=== PATIENT | female | born 1990 | race Caucasian/White ===

== ENCOUNTER → 2018-12-27 10:40 | Outpatient (CLI) | payer OTHER, SELFPAY ==
--- NOTE | 2018-12-27 | DI.RAD.S_ITS ---
PROCEDURE: FL UPPER GI W AIR INDICATIONS: Unspecified abdominal pain COMPARISON: None. 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 No suspicious abdominal calcifications. Visualized solid organ contours appear normal. Bony structures appear unremarkable. Esophagus: Esophageal mucosa is normal on air-contrast views. On single-contrast views, there is normal esophageal peristalsis. No strictures, extrinsic mass effects, or diverticula. No hiatal hernia or elicited gastroesophageal reflux. There is normal transit of a calibrated barium tablet through the esophagus. Stomach: The stomach is normally distensible, with normal rugal fold thickness. No mucosal masses or ulcers. Pylorus and duodenal bulb appear normal in morphology. Duodenal folds are normal in thickness as well. IMPRESSION: 1. Normal esophageal motility. No esophageal stricture. No reflux. 2. No gastric ulcer. No hiatal hernia. 3. On clinical palpation there is a soft fullness at the site of concern in the midline upper abdomen. This may represent rectus diastases or ventral abdominal wall hernia. Targeted ultrasound with a Valsalva maneuver of the region may be helpful for further evaluation. CT of the abdomen and pelvis with contrast may also be helpful for screening if source of abdominal pain is not identified. Dictated by: Luis Alberto Humphries M.D. on 12/27/2018 at 13:28 Approved by: Luis Alberto Humprhies M.D. on 12/27/2018 at 13:33
== END ==
PROVIDERS: PCP Family Medicine; Visit Provider Family Medicine
DX: R10.9 Unspecified abdominal pain (principal)
CPT/HCPCS: 74247

== ENCOUNTER → 2019-01-18 06:38 | Outpatient (CLI) | payer OTHER, SELFPAY ==
--- NOTE | 2019-01-18 07:40 | DI.CT.S_ITS ---
PROCEDURE: CT ABDOMEN PELVIS W CON INDICATIONS: Unspecified abdominal pain TECHNIQUE: After the administration of oral and intravenous contrast, 5 mm thick sections acquired from the diaphragms to the symphysis. 5 mm thick coronal and sagittal reformats were performed. For radiation dose reduction, the following was used: automated exposure control, adjustment of mA and/or kV according to patient size. COMPARISON: Pelvic ultrasound 07/20/2017. FINDINGS: Image quality: Excellent. ABDOMEN: Lung bases: Lung bases are clear. Heart size is normal. Solid organs: Liver is normal in size and enhancement. Focal fatty infiltration at the falciform ligament. Gallbladder is nondistended. No calcified gallstones. Increased conspicuity of the gallbladder wall. Biliary system is non-dilated. Pancreas enhances normally. Pancreatic duct is not dilated. Spleen is normal in size and enhancement. Subcentimeter dense focus most likely represents a benign hemangioma. No adrenal nodules. Kidneys are normal in size and enhancement, without hydronephrosis. Left renal collecting system is prominent compared to the right. No hydroureter. Peritoneum and bowel: Stomach, small bowel, and colon loops are normal in caliber and wall thickness. The appendix is normal. No free fluid or air. Nodes and vessels: No retroperitoneal or mesenteric adenopathy. Aorta and inferior vena cava are normal in caliber. Miscellaneous: No ventral hernias. PELVIS: Genitourinary: Bladder is decompressed. The small right ovarian cyst measuring 1.5 cm and left measuring 1 cm. Uterus is retroverted and within normal limits in size. There is a hypointense region in the myometrium, (5/36). IUD is no longer present. No free fluid. Miscellaneous: No inguinal hernias or adenopathy. Bones: No suspicious bony lesions. No vertebral body compression fractures. IMPRESSION: 1. No inflammatory process identified to explain the patient's epigastric pain. 2. Small indeterminate area of hypodensity in the uterine myometrium. This could be seen in adenomyosis or an infectious process. Pelvic ultrasound or pelvic MRI could be performed for further evaluation. Dictated by: Luis Alberto Humphries M.D. on 01/18/2019 at 9:09 Approved by: Luis Alberto Humphries M.D. on 01/18/2019 at 9:20
== END ==
PROVIDERS: PCP Family Medicine; Visit Provider Family Medicine
DX: R10.13 Epigastric pain (principal)
CPT/HCPCS: 74177; Q9967

== ENCOUNTER 2019-03-11 07:52 | Day surgery (SDC) | payer OTHER, SELFPAY ==
[2019-03-07 08:36] VITALS: BMI 22.0
[2019-03-11] VITALS (9 sets, daily range): BP systolic 102–119; BP diastolic 68–77; PULSE 57–96; RESP 11–18; TEMP 36.1–37.3; O2SAT 98–100; BMI 20.5
--- NOTE | 2019-03-11 | PATH_ITS ---
[facility] Accession Number: [id number] . 01 Material submitted: . fallopian tube - BILATERAL FALLOPIAN TUBES . 02 Diagnosis: Bilateral Fallopian Tubes, Tubal Ligation: Complete cross-sections of segments of fallopian tube x2. V 03/14/201958 Local . 02 Electronically signed: . Mary Lenz MD, Pathologist NPI- [id number] . 01 Gross description: . Received in formalin, labeled bilateral fallopian tubes, are two fimbriated fallopian tubes (tube #1: length-4.8 cm, diameter-0.5 cm; tube #2: length-5.2 cm, diameter-0.4 cm) with cortez-purple smooth shiny serosa and cruz unremarkable lumens. Section code: (A1) fallopian tube #1, farm loan representative serial sections; (A2) fimbria #1, bivalved, entirely submitted; (A3) fallopian tube #2, farm loan representative serial sections; (A4) fimbria #2, bivalved, entirely submitted. ([id number]) /MRV 03/14/201958 Local . 02 Pathologist provided ICD-10: Z30.2 . 02 CPT . 900524 Performed at: 01 [facility] [address], [place], [place] [id number] MD Augusto Hayes MD Phone: [phone] Performed at: 02 [facility] [address] [place], [place] [id number] MD Cleopatra Byrd MD Phone: [phone]
[2019-03-11] MEDS: LACTATED RINGERS 1,000 ML 42 ML IV (10:54)
--- NOTE | 2019-03-11 11:01 | PM.PREOP ---
Pre-operative Note Interval Note History & Physical reviewed/Exam performed by Physician: Yes Changes to H&P: No
--- NOTE | 2019-03-11 11:36 | SUR.OPER ---
Lithotomy on padded OR bed, head on pillow, arms secured on padded arm boards at <90 degrees abduction. Legs secured in padded yellow fins stirrups.
[2019-03-11] MEDS: BUPIVACAINE 0.5% W/ EPI (PF) 30 ML VIAL INJ (11:43)
[2019-03-11] MEDS: fentaNYL 100 MCG/2 ML INJ IV (12:13)
[2019-03-11] MEDS: OXYCODONE/ACETAMINOPHEN 5/325 TABLET 1 TAB PO ×2 (12:21→12:57)
--- NOTE | 2019-03-11 12:43 | SUR.PHASEII ---
pt arrived to phase II via stretcher. Pt sitting up with eyes open and talking to RN. Drsg's on abdomen observed to be c/d/i. Pt denies any nausea at this time. Pt rating pain 5/10. This LN will medicate pt with another po pain medication. Bed in lowest position and call light given to pt.
--- NOTE | 2019-03-19 10:34 | PM.HP.1 ---
History of Present Illness History of Present Illness Date Patient Seen: 03/11/19 Time Patient Seen: 10:45 Chief complaint: [id number] Narrative: Patient is a 28-year-old 4 para 2 who desires permanent sterilization She is here for laparoscopic bilateral salpingectomy Patient History Medical History (Updated 03/07/19 @ 08:40 by Gin Moore RN) Ear infection (Acute) Sciatica (Acute) Surgical History (Updated 03/07/19 @ 08:40 by Gin Moore RN) No history of previous surgery (Acute) Family & Social History Social History: household members significant other Tobacco & Substance use: Smoking Status Former smoker Meds Home Medications and Allergies Home Medications Medication Instructions Recorded Confirmed Type No Known Home Medications 01/24/19 03/11/19 History Allergies Allergy/AdvReac Type Severity Reaction Status Date / Time cefaclor [From CECLOR] Allergy Intermediate Hives as a Verified 03/11/19 08:21 baby Exam Vital Signs (past 8 hours): Oxygen Delivery Method Room Air Narrative Exam Narrative: HEENT: No thyromegaly, no anterior cervical or supraclavicular lymphadenopathy. Lungs:Clear to auscultation bilaterally, no wheezes. Cardiovascular: Regular rate and rhythm, no murmurs, rubs, or gallops. Abdomen: No scars. No hepatosplenomegaly. No masses palpable. External genitalia: Normal Vagina: Normal Cervix: Normal Bimanual exam: 8 Week size uterus, retroverted Mobile. Rectal: No masses. Assessment & Plan Assessment & Plan narrative: Assessment: 28-year-old 4 para 2 desires permanent sterilization Plan: Laparoscopic bilateral salpingectomy The risks, benefits, and alternatives to the procedure were explained to the patient. The risks including bleeding, infection, injury to the bowel, bladder, or ureters. She understands these risks and agrees to proceed. A full par Q was held and consent form was signed.
--- NOTE | 2019-03-19 13:48 | PM.GYNOP.1 ---
Operative Date/Time/Diagnoses Date of procedure: 03/11/19 Time of procedure: 11:00 Pre-op diagnosis: Desires permanent sterilization Post-op diagnosis: same Procedure & Clinicians Procedure: Procedures Operation Date: 03/11/19 09:45 Actual Procedures Side Surgeon p Laparoscopic Salpingectomy Bilateral Kaci Pardo MD Indications: Desires permanent sterilization Surgeon: Kaci Pardo Anesthesia Type: General Operative Notes Findings: Eight week size retroflexed uterus. Normal tubes and ovaries. Normal liver and gallbladder. Normal appendix Closure Type: primary Specimen(s): left tube and right tube Estimated blood loss (mL): 5 Blood products transfused: none Procedure in detail: After informed consent was obtained, the patient was taken to the operating room where she was placed in the dorsal supine position. After adequate general endotracheal anesthesia was achieved, she was placed in the dorsal lithotomy position, and prepped and draped in the usual sterile fashion. A time-out was performed. A bivalve speculum was placed into the vagina and the anterior lip of the cervix grasped with a single-tooth tenaculum. The cervical os was sequentially dilated until the Zumi uterine manipulator could pass easily into the endometrial cavity. The single-tooth tenaculum was removed from the anterior lip of the cervix. The bivalve speculum was removed from the vagina. Attention was then turned to the abdomen where 6 cc of 0.5% Marcaine with epinephrine were injected in the umbilical fold. A 5 mm incision was made. The Veress needle was placed into the peritoneal cavity, and its placement confirmed by aspiration and drop test. The abdominal cavity was insufflated with 3.8 L of CO2. The Veress needle was removed, and a 5 mm trocar was placed without difficulty. Initial inspection of the pelvis and abdomen revealed the findings noted above. Two other incisions were made midway between the pubic symphysis and umbilicus, 4 cm lateral to the midline, after 6 cc of 0.5% Marcaine with epinephrine were injected. Two 5 mm trocars were placed under direct visualization. The right tube was grasped with an atraumatic grasper. Using the PlasmaKinetic was settings of 40 w, the mesosalpinx on the right side was cauterized and cut all the way down to the cornua of the uterus. The tube was amputated at the cornua. This was repeated on the patient's left tube. The tubes were removed through the lateral trocars. Hemostasis was achieved. The instruments were removed from the abdomen. The CO2 was allowed to escape. The incisions were repaired with 4 0 Biosyn in a subcuticular fashion. Steri-Strips, 2 x 2, and op site were placed. The Zumi uterine manipulator was removed from the uterus. Sponge, lap, and instrument counts were correct x2. The patient tolerated the procedure well, and was taken to PACU in stable condition. Complications: none Post-operative Condition: stable Disposition: PACU Plan for aftercare: Home after recovery
== END 2019-03-11 13:23 | disposition home or self-care (01) ==
PROVIDERS: PCP Family Medicine; Visit Provider Obstetrics & Gynecology
PROC: 0UT74ZZ Resection of Bilateral Fallopian Tubes, Percutaneous Endoscopic Approach (ICD-10-PCS; CPT 58661; principal; 2019-03-11 09:45)
DX: Z30.2 Encounter for sterilization (principal)
CPT/HCPCS: 58661; J1100; J1885; J2250; J2405; J2704; J3010

== ENCOUNTER 2022-04-15 07:38 | Emergency (ER) | payer OTHER, SELFPAY ==
[2022-04-15 08:05] VITALS: BP 131/73; PULSE 105; RESP 19; TEMP 37.4; O2SAT 98; BMI 23.7
--- NOTE | 2022-04-15 09:41 | ED.WOUNDLAC ---
HPI - Wound/Laceration General Chief Complaint: Wound/Laceration Stated Complaint: cut fingers with an exato knife sees inside Time Seen by Provider: 04/15/22 09:18 Source: patient Mode of arrival: Family Vehicle Limitations: no limitations History of Present Illness HPI narrative: This is a 31 year old female who is right-hand dominant with lacerations to her 3rd and 4th fingers on her left hand. Patient denies any medical issues. No daily medications. Patient thinks her tetanus was last updated 9 years ago. 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 She states the 1 smaller spots seem to be bleeding quite a bit. She noticed that the skin was gapping on the 3rd finger. She denies numbness or tingling. She is able to flex and extend her fingers here in the department. She denies any other injuries. Related Data Home Medications Medication Instructions Recorded Confirmed No Known Home Medications 01/24/19 03/11/19 Allergies Allergy/AdvReac Type Severity Reaction Status Date / Time cefaclor [From CECLOR] Allergy Intermediate Hives as a Verified 04/15/22 08:02 baby Review of Systems Review of Systems ROS Unobtainable: All systems reviewed & are unremarkable except as noted in HPI and below Patient History Medical History Ear infection Sciatica Surgical History No history of previous surgery S/P laparoscopic surgery Social History household members: significant other Smoking Status: Former smoker Smoking Status: Former smoker tobacco type: cigarettes alcohol intake frequency: 0-2 drinks per day Substance Use Type: marijuana Exam Narrative Exam Narrative: GENERAL: Alert and oriented x three, well-nourished female in mild distress. HEENT: Head normocephalic, atraumatic, EOMI, pupils reactive, face symmetric, moist mucous membranes NECK: Supple, full range of motion EXTREMITIES: Normal range of motion, no clubbing or edema. Neurovascularly intact. Patient has cap refill less than 2 seconds in all 5 fingers. Patient 1/2 cm laceration over the proximal metacarpophalangeal joint that has a brisk ooze, this easily stopped with direct pressure. Tendons appear intact. Patient has a 2.5 cm laceration over the lateral portion and volar side of her 3rd finger extending from just proximal of the distal interphalangeal joint and next to the middle interphalangeal joint. It is gapped there subcutaneous tissue exposure, I am unable to visualize any tendon involvement. Patient has full flexion, extension and 80 and adduction. NEUROLOGICAL: Cranial nerves II through XII grossly intact. Moving all extremities SKIN: Warm, dry, no petechiae, no rashes or lesions otherwise noted. Initial Vital Signs Initial Vital Signs: Vital Signs Temperature 99.4 F 04/15/22 08:05 Pulse Rate 105 H 04/15/22 08:05 Respiratory Rate 19 04/15/22 08:05 Blood Pressure 131/73 04/15/22 08:05 Pulse Oximetry 98 04/15/22 08:05 Oxygen Delivery Method 04/15/22 08:05 Procedures Laceration Repair Laceration 1: Site: hand (finger #4) Size (cm): 1.5 Description: linear Depth: simple, single layer and involves muscle layer Local Anesthetic: lidocaine 1% and with bicarb Amount of anesthesia used (mL): 1 Pre-repair: wound explored, irrigated extensively and deep structures intact Skin layer closed with: nylon Skin layer suture size: 4-0 Number of sutures: 3 Technique: simple, interrupted Laceration 2: Site: hand (finger #3) Side (If applicable): left Size (cm): 2.5 Description: linear Depth: simple, single layer Local Anesthetic: lidocaine 1% and with bicarb Amount of anesthesia used (mL): 2.5 Pre-repair: wound explored, irrigated extensively and deep structures intact Skin layer closed with: nylon Skin layer suture size: 4-0 Number of sutures: 7 Technique: simple, interrupted Course Orders Ordered: Discontinued Medications Diphtheria/Tetanus/Acell Pertussis (Tet,Diph,Pertuss(Acell),Vac/Pf 0.5 Ml Syringe) 0.5 ml IM .ONCE ONE Stop: 04/15/22 09:19 Last Admin: 04/15/22 10:19 Dose: 0.5 ml Documented By: NR Lidocaine HCl (Lidocaine 2% Inj Sdv 5ml) 5 ml INJ INTRA-OP ONE Stop: 04/15/22 09:19 Last Admin: 04/15/22 10:18 Dose: 5 ml Documented By: NR Vital Signs Vital signs: Vital Signs - 8 hr 04/15/22 08:05 Temperature 99.4 F Pulse Rate 105 H Respiratory Rate 19 Blood Pressure 131/73 Pulse Oximetry 98 Oxygen Delivery Method Room Air MDM - Wound/Laceration MDM Narrative Medical decision making narrative: This is a 31-year-old female with 2 lacerations to the dorsum of her left hand, patient is non dominant hand her tetanus was updated. Lacerations repaired. Patient appears to be neurovascularly intact she is good range of motion. She was splinted to prevent flexion of the joints so that she does not pull or break the sutures. We discussed return precautions. All questions answered. Discharge Plan Departure Patient Disposition: Home Clinical Impression: Laceration of finger Qualifiers: Encounter type: initial encounter Finger: ring finger Laceration of finger of left hand Qualifiers: Encounter type: initial encounter Finger: middle finger Instructions: DI for Laceration Repair Activity Restrictions/Additional Instructions: Follow-up in the next 7-10 days to have your sutures removed. You can call for an appointment follow up with urgent care, primary care return to emergency department. Use the splint to remind yourself not to flex your fingers to prevent your sutures from breaking. You can take this off to wash and clean the area. Wound Care: Keep wound(s) clean and dry. Wash daily with soap and water only, pat dry. Do not use over the counter products (alcohol or peroxide)on the wounds unless instructed by a physician. Can use triple antibiotic ointment over both areas. If wound condition worsens (increased/expanding redness, developing fluid blisters, or worsening pain), either contact your doctor for an urgent re-assessment , or return to the Emergency Department. Return to the Emergency Department for any new or worsening symptoms. Return if fever greater than 100.4 Fahrenheit, increased swelling, increasing pain or worsening symptoms such as increased discharge or spreading redness, new numbness, tingling or weakness, loss of sensation, or other new or concerning changes. Prescriptions: No Action No Known Home Medications Referrals: Triston Zhang MD [Primary Care Provider] - Stand Alone Forms: Patient Portal/API
[2022-04-15] MEDS: LIDOCAINE 2% INJ SDV 5ML 5 ML INJ (10:18)
[2022-04-15] MEDS: TET,DIPH,PERTUSS(ACELL),VAC/PF 0.5 ML SYRINGE IM (10:19)
[2022-04-15 10:32] VITALS: BP 120/73; PULSE 92; RESP 18; O2SAT 98
== END 2022-04-15 10:33 | disposition home or self-care (01) ==
PROVIDERS: Emergency Provider Emergency Medicine; PCP Family Medicine
DX: S61.213A Laceration without foreign body of left middle finger without damage to nail, initial encounter (principal); S61.215A Laceration without foreign body of left ring finger without damage to nail, initial encounter; W26.0XXA Contact with knife, initial encounter; Z23 Encounter for immunization
CPT/HCPCS: 12002; 29130; 90471; 99283; 90715

== ENCOUNTER → 2022-10-03 06:37 | Outpatient (CLI) | payer OTHER, MEDICAID, SELFPAY ==
--- NOTE | 2022-10-03 | DI.US.S_ITS ---
PROCEDURE: US ABDOMEN LIMITED INDICATIONS: LUMP SUPERIOR TO UMBILICUS TECHNIQUE: Real-time focused scanning was performed of the abdomen, with image documentation. COMPARISON: None. FINDINGS: Focused ultrasound examination of anterior abdominal wall superior to the umbilicus shows 8 millimeter anterior abdominal wall defect with ventral herniation sac containing fat only. Overall size of the herniation sac measures 3.7 x 1.6 x 4.1 cm in size. IMPRESSION: Fat containing supraumbilical ventral hernia as described above. Dictated by: Galindo Betts M.D. on 10/03/2022 at 9:53 Approved by: Galindo Betts M.D. on 10/03/2022 at 9:54
== END ==
PROVIDERS: PCP Family Medicine; Referring Provider Family Medicine; Visit Provider Family Medicine
DX: K43.9 Ventral hernia without obstruction or gangrene (principal); R22.2 Localized swelling, mass and lump, trunk; R10.13 Epigastric pain
CPT/HCPCS: 76705

== ENCOUNTER 2022-11-08 06:35 | Day surgery (SDC) | payer OTHER, MEDICAID, SELFPAY ==
[2022-10-25 08:40] VITALS: BMI 21.4
[2022-11-08 06:55] VITALS: BP 107/74; PULSE 70; RESP 16; TEMP 36.4; O2SAT 98; BMI 21.4
[2022-11-08] MEDS: SCOPOLAMINE 1 PATCH TOP (07:02)
[2022-11-08] MEDS: LACTATED RINGERS 1,000 ML 42 ML IV ×2 (07:02→08:27)
--- NOTE | 2022-11-08 07:46 | P.HP_ITS ---
History of Present Illness History of Present Illness Date Patient Seen: 11/08/22 Time Patient Seen: 07:46 Chief complaint: Hernia Repair Narrative: Deidre is here for her epigastric hernia repair with mesh. Please see the previous office note for details. No changes in her history since that time. [facility] Medical History (Updated 10/31/22 @ 16:10 by Delbert Rodriguez RN) Anxiety Ear infection Murmur Sciatica Surgical History (Updated 10/25/22 @ 08:44 by Gin Moore RN) H/O surgical removal of keloid S/P laparoscopic surgery (03/19/19) Family History Grandmother Ovarian cancer Throat cancer Thyroid cancer Social History marital status: unknown household members: children lives independently: Yes occupational status: employed Smoking Status: Former smoker alcohol intake: former Meds Home Medications and Allergies Home Medications Medication Instructions Recorded Confirmed Type buspirone 10 mg tablet 10 mg PO BID 10/24/22 11/08/22 History lamotrigine 25 mg tablet 25 mg PO DAILY 10/24/22 11/08/22 History quetiapine 100 mg tablet 100 mg PO DAILY 10/24/22 11/08/22 History Allergies Allergy/AdvReac Type Severity Reaction Status Date / Time cefaclor [From CECLOR] Allergy Intermediate Hives as a Verified 11/08/22 06:54 baby Exam Vital Signs (past 8 hours): - 11/08/22 06:55 Temperature 97.6 F Pulse Rate 70 Respiratory Rate 16 Blood Pressure 107/74 Pulse Oximetry 98 Oxygen Delivery Method Room Air Oxygen Delivery Method Room Air Narrative Exam Narrative: Supraumbilical epigastric hernia roughly 3 cm Assessment & Plan Assessment and plan (1) Epigastric hernia: Status: Acute Plan We reviewed the risks and benefits of epigastric hernia repair with mesh and she would like to proceed.
[2022-11-08] MEDS: CLINDAMYCIN 900 MG/50 ML PIGGYBACK 50 MG IV (07:55)
--- NOTE | 2022-11-08 08:22 | SUR.OPER ---
Supine on padded OR bed, head on pillow, arms secured on padded arm boards at <90 degrees abduction, legs uncrossed, safety belt at thigh, tape over blanket over lower legs.
[2022-11-08] MEDS: BUPIVACAINE 0.5% (PF) 30 ML, EPINEPHrine 0.15 MG INJ (08:28)
[2022-11-08 08:39] VITALS: BP 115/63; PULSE 109; RESP 14; TEMP 36.9; O2SAT 98
--- NOTE | 2022-11-08 08:43 | PM.OP.1 ---
Operative Date/Time/Diagnoses Date of procedure: 11/08/22 Time of procedure: 08:43 Pre-op diagnosis: Epigastric hernia Post-op diagnosis: same Procedure & Clinicians Procedure: Open epigastric hernia repair with mesh Same procedure as scheduled: Yes Surgeon: Nathaniel Lackey [facility] Worker: Ridge Goyal Operative Notes Procedure in detail: Preoperative antibiotic was administered. The patient was brought to the operating room, placed on the table in the supine position and general anesthesia was induced. The abdomen was prepped and draped in the usual fashion. A time-out was performed. A 5 cm transverse incision was made just superior to the umbilicus. The hernia appeared to contain some preperitoneal fat or potentially falciform ligament adipose tissue. There was no peritoneal sac. The hernia was freed and allowed to drop back into the preperitoneal space. The fascial defect was about 1.5 cm and oriented in a transverse direction. We injected some local into the fascia and the closed the defect transversely with 3 interrupted 0 Ethibond sutures. The subcutaneous adipose tissue was cleared off of the anterior sheath circumferentially about 2 cm in each direction. A piece of polypropylene mesh was trimmed to fit over the fascial closure and secured with Tisseel. The skin was closed with multiple interrupted 3-0 Vicryl dermal sutures followed by a running 4 Monocryl subcuticular closure. Steri-Strips were applied and an abdominal binder was applied. Ridge HERZOG provided assistance with exposure, retraction and closure of incisions. EBL: 10 mL Post-operative Condition: stable Disposition: PACU
[2022-11-08 08:44] VITALS: BP 108/59; PULSE 97; RESP 14; O2SAT 99
[2022-11-08 08:49] VITALS: BP 105/67; PULSE 100; RESP 16; O2SAT 99
[2022-11-08 08:54] VITALS: BP 101/57; PULSE 84; RESP 16; O2SAT 98
[2022-11-08 09:00] VITALS: BP 101/57; PULSE 84; RESP 16; O2SAT 99
[2022-11-08] MEDS: HYDROCODONE/ACET 5/325 TABLET 1 TAB PO (09:01)
== END 2022-11-08 09:23 | disposition home or self-care (01) ==
PROVIDERS: PCP Family Medicine; Referring Provider Surgery; Visit Provider Surgery
PROC: (CPT 49591; principal; 2022-11-08 07:45)
DX: K43.9 Ventral hernia without obstruction or gangrene (principal)
CPT/HCPCS: 49591; J0171; J1100; J1885; J2250; J2405; J2704; J3010; J3490

== ENCOUNTER → 2024-04-04 13:30 | Outpatient (CLI) | payer OTHER, SELFPAY ==
--- NOTE | 2024-04-04 13:32 | DI.CT.S_ITS ---
PROCEDURE: CT ABDOMEN PELVIS W CON INDICATIONS: recurrent ventral hernia, mesh complication TECHNIQUE: After the administration of intravenous contrast, axial sections acquired from the lung bases to the pubic symphysis. Coronal and sagittal reformats were performed. For radiation dose reduction, the following was used: automated exposure control, adjustment of mA and/or kV according to patient size. COMPARISON: [facility], CT, CT ABDOMEN PELVIS W CON, 01/18/2019, 7:41. FINDINGS: Image quality: Diagnostic. Lower Chest: No significant findings. ABDOMEN: Liver: No solid mass. Gallbladder: No radiopaque gallstones or wall thickening. Biliary ducts: No biliary dilation. Pancreas: No ductal dilation. Spleen: Size is within normal limits. Adrenal Glands: No adrenal nodules. Kidneys and Ureters: No hydronephrosis. No solid mass. No complex renal cystic lesion which requires follow up. Stomach and Bowel: Normal colonic caliber, without significant wall thickening. No abscess collection. Appendix is visualized and is within normal limits. Peritoneum: No abnormal intraperitoneal fluid. No free air. Ventral Wall: Small ventral hernia in midline anterior abdominal wall at the level of inferior liver contains fat only. Abdominal Nodes: No retroperitoneal or mesenteric adenopathy by size criteria. Vessels: Aorta and inferior vena cava are normal in size. PELVIS: Pelvic Organs: Simple appearing bilateral ovarian cysts are seen measures up to 1 cm in size in right ovary and 1.2 cm in size in left ovary. Prominent pelvic vessels are noted which may be seen in the clinical setting of pelvic congestion syndrome. Bladder: No bladder wall thickening, accounting for underdistention. Pelvic Nodes: No enlarged lymph nodes. Miscellaneous: No inguinal hernias are seen. Bones: No aggressive osseous abnormality. IMPRESSION: 1. Small ventral hernia containing fat only. No anterior abdominal wall mass or fluid collection. 2. Mild constipation. No bowel obstruction or abnormal bowel wall thickening. No free fluid or free air. 3. Small bilateral ovarian cysts. Prominent bilateral pelvic vessels which can be seen associated with clinical diagnosis of pelvic congestion syndrome. Dictated by: Galindo Betts M.D. on 04/04/2024 at 14:39 Approved by: Galindo Betts M.D. on 04/04/2024 at 14:43
== END ==
LOC: CT 13:31
PROVIDERS: PCP Family Medicine; Referring Provider Surgery; Visit Provider Surgery
DX: K43.2 Incisional hernia without obstruction or gangrene (principal); K59.00 Constipation, unspecified; N83.292 Other ovarian cyst, left side; N83.291 Other ovarian cyst, right side
CPT/HCPCS: 74177; Q9967

== ENCOUNTER 2024-04-30 13:35 | Day surgery (SDC) | payer OTHER, SELFPAY ==
[2024-04-23 10:52] VITALS: BMI 21.1
[2024-04-30] VITALS (8 sets, daily range): BP systolic 99–120; BP diastolic 60–70; PULSE 72–107; RESP 14–16; TEMP 36.2–37.3; O2SAT 97–98; BMI 21.2
--- NOTE | 2024-04-30 | PATH_ITS ---
[facility] Accession Number: [id number] No. of containers..01 Tissue . 01 Material submitted: . hernia - EXPLANTED HERNIA MESH . 01 Diagnosis: HERNIA MESH, REMOVAL: Portion of surgical mesh. Attached benign fibroadipose tissue with foreign body-type granulomatous inflammation. No evidence of neoplasm. MRV 05/02/2024 1741 Local . 01 Electronically signed: . Damon Ellis MD, PhD, Pathologist NPI- [id number] . 01 Gross description: . Received in formalin with two patient identifiers and explanted hernia mesh, is a fragment of surgical mesh with attached fibroadipose tissue, 3.7 x 2.6 x 0.4 cm. Several knotted green presumed sutures are identified across an area measuring 1.2 x 0.4 cm. No lesions are identified. Research Programmer sections are submitted in A1. ([id number]) /MRV 05/01/2024 1712 Local . 01 Pathologist provided ICD-10: R10.819 . 01 CPT . 695810 Specimen Comment: A courtesy copy of this report has been sent to [facility] Pathology Performed at: [address] [address], [place], [place] [id number] MD Augusto Hayes MD Phone: [phone]
[2024-04-30] MEDS: LACTATED RINGERS 1,000 ML 42 ML IV (13:50)
[2024-04-30] MEDS: SCOPOLAMINE 1 PATCH TOP (13:56)
--- NOTE | 2024-04-30 14:15 | PM.PREOP ---
Pre-operative Note Interval Note History & Physical reviewed/Exam performed by Physician: Yes Changes to H&P: No
[2024-04-30] MEDS: CEFAZOLIN 2 GM/100 ML PREMIX 100 ML IV (14:40)
--- NOTE | 2024-04-30 14:49 | SUR.OPER ---
Supine on padded OR bed, head on pillow, arms secured on padded arm boards at <90 degrees abduction, legs uncrossed, safety belt at thigh, tape over blanket over lower legs.
[2024-04-30] MEDS: BUPIVACAINE 0.5% W/ EPI (PF) 30 ML VIAL INJ (14:52)
[2024-04-30] MEDS: LIDOCAINE 1% 20 ML INJ (14:53)
[2024-04-30] MEDS: ACETAMINOPHEN IV 1,000 MG/100 ML VIAL 400 MG IV (15:05)
--- NOTE | 2024-04-30 15:38 | PM.OP.1 ---
Operative Date/Time/Diagnoses Date of procedure: 04/30/24 Time of procedure: 15:38 Pre-op diagnosis: Recurrent ventral hernia Post-op diagnosis: same Procedure & Clinicians Procedure: 1. Explantation of hernia mesh 2. Repair recurrent reducible ventral hernia with mesh, greater than 10 cm in size 3. Adjacent tissue transfer of the trunk, greater than 16 cm x 10 cm, at least 160 sq cm Same procedure as scheduled: Yes Indications: Patient had a previous onlay hernia repair was experiencing pain discomfort, had a CT scan which showed recurrence Surgeon: Lowell Lopez Click Yes if Unassisted: Yes Anesthesia Type: General Operative Notes Findings: Hernia of the posterior she recurrent superior to the mesh with the mesh rolled over on the top edge overall hernia size greater than 10 cm Closure Type: primary Specimen(s): other (Explanted mesh) Estimated Blood Loss (mL): 15 Procedure in detail: Patient was brought to the operating room suite. LMA general anesthesia was induced. The abdomen was prepped and draped in usual fashion. A total of 60 mL mixture of 1% lidocaine with epi and 0.5% Marcaine were infiltrated as a field block and bilateral rectus block. The old transverse incision was opened with a 15 blade and carried down to the old mesh. Metzenbaum scissors were used to free the mesh from the anterior fascia preserving the anterior fascia. The explanted mesh was sent off as specimen. The old mesh had folded over due to a diastasis recti and recurrence of the hernia in the superior aspect of the previous repair. The anterior fascia was incised bilaterally overlying the rectus muscles. Retrorectus space was dissected out to accommodate retrorectus placement of the mesh. After dissection of the retrorectus plane from the xiphoid to the umbilicus the resultant space measured 16 cm craniocaudal dimension by greater than 10 cm in lateral dimension. The hernia was plicated with in the posterior sheath using an Ethibond suture. A Bard 3 in x 6 in flat mesh was cut to accommodate the 10 cm x 16 cm area. This was placed in the retrorectus space and affixed at 12 o'clock and 6 o' clock with 2-0 Vicryl sutures. The resultant defect required approximation with well vascularized pedicles of rectus muscle and anterior sheath. Adjacent tissue transfer was performed to cover the defect measuring greater than 16 x 10 cm. A 2-0 barbed suture, Stratafix was run from the xiphoid to the umbilicus and back to bring the bilateral anterior rectus together, thus reapproximating her rectus muscles in the midline. 3-0 Vicryl was used to close Jossy's. 4-0 Monocryl was used to close the skin. Skin was covered with Dermabond. Patient woke was transferred to PACU in stable condition for anticipated same-day discharge. Complications: none Post-operative Condition: stable Disposition: PACU Plan for aftercare: home
[2024-04-30] MEDS: ONDANSETRON 4 MG/2 ML INJ IV (15:51)
[2024-04-30] MEDS: OXYCODONE IR 5 MG TABLET PO (15:52)
== END 2024-04-30 16:46 | disposition home or self-care (01) ==
PROVIDERS: PCP Family Medicine; Referring Provider Surgery; Visit Provider Surgery
PROC: (CPT 49617; principal; 2024-04-30 15:15)
DX: K43.2 Incisional hernia without obstruction or gangrene (principal); M62.08 Separation of muscle (nontraumatic), other site; Z87.891 Personal history of nicotine dependence
CPT/HCPCS: 49617; 15734; 49623; C1781; J0131; J0690; J1100; J1885; J2250; J2405; J2704; J3010

== ENCOUNTER → 2024-06-06 07:28 | Outpatient (CLI) | payer OTHER, SELFPAY ==
--- NOTE | 2024-06-06 07:29 | DI.MRI.S_ITS ---
PROCEDURE: MR STROKE Pre- and post-contrast brain MRI, non-contrast brain MR angiogram, pre- and postcontrast neck MR angiogram INDICATIONS: VERTIGO TECHNIQUE: Brain: Noncontrast axial T1 spin echo, axial T2 fast spin echo, sagittal and axial FLAIR, coronal T2 fast spin echo, axial gradient echo, axial diffusion and ADC through the brain. After the administration of contrast, axial 3D VIBE of the cranial vasculature and brain. Brain MRA: Non-contrast 3-D time of flight MR angiogram, with multiple pyqdnaq-ydvojalmk-lrysuunkut (MIP) reformats performed. Neck MRA: Axial and sagittal TruFISP through the neck. Coronal dynamic MR angiogram during administration of contrast in the arterial and venous phases, with 3-dimenstional piliedt-gwcejksmd-oxwdrmgtiv (MIP) reformats constructed from subtraction images. COMPARISON: None. FINDINGS: Image quality: Excellent. BRAIN: CSF spaces: Ventricles are normal in size and shape. Basal cisterns are patent. No extra-axial fluid collections. Brain: No intracranial bleeds or mass effects. Read-white matter interface is normal. Diffusion weighted images show no acute infarct. Brainstem appears normal. Normal intravascular flow voids are present. No abnormal intracranial enhancement. Skull and face: Calvarial marrow signal is normal. Orbits appear normal. Sinuses: Sinuses and mastoids are clear. BRAIN MR ANGIOGRAM: Anterior circulation: Intracranial internal carotid arteries are normal in size and enhancement. The flow within the paired anterior cerebral arteries is normal and symmetric. The flow within the middle cerebral arteries is normal and symmetric. The anterior communicating artery is seen. No stenoses, occlusions, or aneurysms. Posterior circulation: The visualized portions of the vertebral arteries demonstrate normal caliber, and join to form a normal appearing basilar artery. The flow within the posterior cerebral arteries is normal and symmetric. No stenoses, occlusions, or aneurysms. NECK MR ANGIOGRAM: Carotids: Great vessels demonstrate a conventional anatomy as they arise from the aortic arch. The origins of the common carotid arteries appear patent. The calibers and courses of both common carotid arteries are normal. The bifurcation regions appear normal bilaterally. The internal carotid arteries demonstrate normal course and caliber. Posterior circulation: The origins of the vertebral arteries appear patent. More superior portions of both vertebral arteries demonstrate normal course and caliber, and join to form a normal appearing basilar artery. Miscellaneous: Subclavian arteries appear patent. Pre-contrast images through the neck show no soft tissue abnormalities. IMPRESSION: 1. No acute intracranial process. 2. No areas of hemodynamically significant stenosis, vascular occlusion or aneurysmal dilation within the anterior/posterior circulation. 3. No areas of hemodynamically significant stenosis, vascular occlusion or aneurysmal dilation within the neck vasculature. Dictated by: Ceci Crump M.D. on 06/06/2024 at 12:17 Approved by: Ceci Crump M.D. on 06/06/2024 at 12:21
== END ==
LOC: MRI 07:28
PROVIDERS: PCP Family Medicine; Referring Provider Family Medicine; Visit Provider Family Medicine
DX: R42 Dizziness and giddiness (principal)
CPT/HCPCS: 70544; 70549; 70553; A9579

== ENCOUNTER → 2024-09-26 08:17 | Outpatient (CLI) | payer OTHER, SELFPAY ==
--- NOTE | 2024-09-26 08:18 | DI.NM.S_ITS ---
PROCEDURE: NM UPTAKE AND SCAN RADIOPHARMACEUTICAL: 0.37 mCi I-123 sodium iodide by mouth. INDICATIONS: hyperthyroidism TECHNIQUE: I-123 sodium iodide was administered orally. Anterior neck images were obtained, and iodine uptake by the thyroid gland calculated using geothermal plant manager's software. COMPARISON: None. FINDINGS: Morphology: No discrete nodules identified in the parenchyma Uptake: 6 hour thyroid uptake is 35 % ; normal ranges are from 6-18%. 24 hour thyroid uptake is 50% ; normal ranges are from 10-30%. IMPRESSION: Elevated 6 and 24 hour uptake, no discrete nodules identified by scintigraphy. Findings are suggestive of Graves. Correlate with TFTs and thyroid ultrasound if not previously obtained. Dictated by: Onel Joseph M.D. on 09/27/2024 at 14:41 Approved by: Onel Joseph M.D. on 09/27/2024 at 14:43
== END ==
LOC: NUCM 08:18
PROVIDERS: PCP Family Medicine; Referring Provider Family Medicine; Visit Provider Family Medicine
DX: E05.90 Thyrotoxicosis, unspecified without thyrotoxic crisis or storm (principal)
CPT/HCPCS: 78014; A9516

== ENCOUNTER → 2024-10-09 06:53 | Outpatient (CLI) | payer OTHER, SELFPAY ==
--- NOTE | 2024-10-09 06:54 | DI.US.S_ITS ---
PROCEDURE: US THYROID INDICATIONS: hyperthyroidism TECHNIQUE: Real-time scanning was performed of the thyroid gland, with image documentation. COMPARISON: [place], [place], [place] UPTAKE AND SCAN, 09/26/2024, 9:11. FINDINGS: Thyroid: Right lobe measures 6.4 x 1.6 x 1.1 cm. Left lobe measures 5.7 x 1.9 x 1.1 cm. Isthmus is 0.3 cm thick. Echotexture is heterogeneous. Blood flow appears prominent. No discrete nodules. IMPRESSION: Heterogeneous appearance of the thyroid gland. Blood flow appears prominent. No discrete thyroid nodules. Dictated by: Luis Alberto Humphries M.D. on 10/10/2024 at 15:47 Approved by: Luis Alberto Humphries M.D. on 10/10/2024 at 15:49
== END ==
LOC: US 06:54
PROVIDERS: PCP Family Medicine; Referring Provider Family Medicine; Visit Provider Family Medicine
DX: E05.90 Thyrotoxicosis, unspecified without thyrotoxic crisis or storm (principal)
CPT/HCPCS: 76536